=== PATIENT | male | born 1995 | race Two or more races ===

== ENCOUNTER 2019-06-14 18:53 | Emergency (ER) | payer SELFPAY ==
[~2019-06-14] VITALS: Ht 175.3 cm; Wt 95.0 kg
[2019-06-14] MEDS ORDERED: IBUPROFEN 600MG TABLET PO ONE (20:00)
[2019-06-14] MEDS ORDERED: AMOXICILLIN/POTASSIUM CLAVULANATE 875/125MG TAB PO ONE (20:00)
[2019-06-14 20:24] VITALS: BP 119/80
== END 2019-06-14 20:25 | disposition home or self-care (01) ==
LOC: ER 18:53
DX: S61.451A Open bite of right hand, initial encounter (principal); S01.151A Open bite of right eyelid and periocular area, initial encounter; F12.10 Cannabis abuse, uncomplicated; W54.0XXA Bitten by dog, initial encounter; Y93.89 Activity, other specified; Y92.89 Other specified places as the place of occurrence of the external cause
CPT/HCPCS: 73130; 99283; A4217; Z7610